=== PATIENT | female | born 1990 | race African-American/Black ===

== ENCOUNTER 2016-11-26 22:05 | Emergency (ER) | payer BC ==
[2016-11-26 22:16] VITALS: BP 119/84; PULSE 91; TEMP 98.9; BMI 24.7
[2016-11-26 22:36] LABS: AUTOMATED BASOPHIL 0.6 % (0-2); AUTOMATED EOSINOPHIL 2.8 % (0-5); AUTOMATED LYMPH 17.4 % (17-44); AUTOMATED MONOCYTE 5.2 % (3-10)
[2016-11-26 22:48] LABS: BLOOD UREA NITROGEN 12 MG/DL (7-17); CALCIUM 9.5 MG/DL (8.4-10.2); CALCULATED OSMOLALITY 267 MOs/Kg (270-290); CHLORIDE 104 mEq/L (98-107); GLUCOSE 87 mg/dL (70-99); SODIUM LEVEL 139 mEq/L (137-146); TOTAL PROTEIN 7.2 G/DL (6.3-8.2)
[2016-11-26] MEDS ORDERED: ONDANSETRON HCL 4 MG ODT TAB PO ONE (23:41)
[2016-11-26] MEDS ORDERED: IBUPROFEN 800 MG TAB PO ONE (23:41)
--- NOTE | 2016-11-26 23:44 | EDPRACDOC ---
- General Information Chief Complaint: Nausea,Vomiting,Diarrhea Stated Complaint: N/V/D Information Source: Patient Mode of Arrival: Car Home Medications: Home Medications Ciprofloxacin HCl [Cipro] 500 mg PO BID #14 tab 05/28/16 Dicyclomine HCl [Bentyl] 20 mg PO Q8H PRN #20 tab 05/28/16 Ondansetron HCl [Zofran] 4 mg PO Q8H PRN #15 tab 05/28/16 Ondansetron [Zofran Odt] 4 mg PO TID PRN #10 tab.rapdis 11/27/16 Allergies/Adverse Reactions: Allergies Allergy/AdvReac Type Severity Reaction Status Date / Time No Known Allergies Allergy Verified 05/28/16 21:19 - History of Present Illness Onset: 2 days HPI: C/o sore throat, non productive cough, facial pressure, nasal congestion, nausea , vomiting, diarrhea, feeling hot, and gen weakness x 2 days. Denies cp, SOB, changes in urine. Med hx = none. Improves With: Reports: Nothing Symptoms: Reports: Cough, Fever, Nasal Symptoms, Sore Throat, Nausea, Vomiting, Weakness, Other (facial pressure and pain) ED Past Medical History - History Reviewed Yes Nurses notes reviewed and agree except as marked - Patient Medical History Neurological History: Reports: Migraine GI/ History: Denies: Urinary Tract Infection Psychological History: Denies: Depression Systemic History: Denies: Cancer Surgical History: Denies: Hysterectomy - Social Medical History Smoking Status: Heavy tobacco smoker (5 or more cigarettes/day or daily pipe/ cigar) EDM Review of Systems - Review of Systems ROS Negative Except as Marked: Yes All systems reviewed and were negative except as marked Throat: Pain Nose: Congestion Respiratory: Cough Neurological: Weakness - Physical Exam Constitutional: Alert Oriented to: Time, Person, Place Last recorded Vital Signs: Last Vital Signs Temp 98.9 F 11/26/16 22:12 Pulse 91 11/26/16 22:12 Resp 20 11/26/16 22:12 BP 119/84 11/26/16 22:12 Pulse Ox 98 11/26/16 22:12 Oxygen Pulse Oxygen Saturation 98 O2 Device Room Air Oxygen Flow Rate Fraction of Inspired Oxygen ( FIO2) - HEENT Head: Normal Eye Exam: negative: Conjunctival Injection, Scleral Icterus Oropharynx: Red Tympanic Membrane: Normal TMJ: Normal Nose: Congestion Neck: Normal - Respiratory/Cardiovascular Respiratory: Normal - CTA Cardiovascular: Normal - GI Tenderness: Non tender - Musculoskeletal Back: Normal Extremities: Normal - Integumentary Skin: Normal - Neurologic Mood Description: Normal Thought: Coherent Perception: Normal - Results 11/26/16 22:23 11/26/16 22:23 WBC 15.1 xk/uL (3.8-10.8) H 11/26/16 22:23 RBC 4.71 xM/uL (4.20-5.40) 11/26/16 22:23 Hgb 13.9 g/dL (12.0-16.0) 11/26/16 22:23 Hct 43.1 % (36-47) 11/26/16 22:23 MCV 92 fL (81-99) 11/26/16 22:23 MCH 29.6 pg (27-32) 11/26/16 22:23 MCHC 32.4 g/dl (33-36) L 11/26/16 22:23 RDW 12.8 % (11.5-14.5) 11/26/16 22:23 Plt Count 224 xk/uL (130-400) 11/26/16 22:23 MPV 8.0 fL (7.4-10.4) 11/26/16 22:23 Neut % (Auto) 74.0 % (45-76) 11/26/16 22:23 Lymph % (Auto) 17.4 % (17-44) 11/26/16 22:23 Bea[place]gard % (Auto) 5.2 % (3-10) 11/26/16 22:23 Eos % (Auto) 2.8 % (0-5) 11/26/16 22:23 Baso % (Auto) 0.6 % (0-2) 11/26/16 22:23 Absolute Neuts (auto) 11.17 xk/uL (1.7-8.2) H 11/26/16 22:23 Absolute Lymphs (auto) 2.57 xk/uL (0.65-4.75) 11/26/16 22:23 Sodium 139 mEq/L (137-146) 11/26/16 22:23 Potassium 4.0 mEq/L (3.5-5.1) 11/26/16 22:23 Chloride 104 mEq/L (98-107) 11/26/16 22:23 Carbon Dioxide 23 mMOL/L (22-33) 11/26/16 22:23 Anion Gap 16 mEq/L (8-16) 11/26/16 22:23 BUN 12 MG/DL (7-17) 11/26/16 22:23 Creatinine 0.80 MG/DL (0.52-1.04) 11/26/16 22:23 Estimated GFR (MDRD) > 60 mL/min (>=60) 11/26/16 22:23 Glucose 87 mg/dL (70-99) 11/26/16 22:23 Calculated Osmolality 267 MOs/Kg (270-290) L 11/26/16 22:23 Calcium 9.5 MG/DL (8.4-10.2) 11/26/16 22:23 Total Bilirubin 1.0 MG/DL (0.2-1.3) 11/26/16 22:23 AST 21 IU/L (14-36) 11/26/16 22:23 ALT 26 IU/L (9-52) 11/26/16 22:23 Alkaline Phosphatase 65 IU/L (38-126) 11/26/16 22:23 Total Protein 7.2 G/DL (6.3-8.2) 11/26/16 22:23 Albumin 4.3 G/DL (3.5-5.0) 11/26/16 22:23 Amylase 74 IU/L (30-110) 11/26/16 22:23 Lipase 49 U/L (23-300) 11/26/16 22:23 Lab Results 11/26/16 11/26/16 22:23 22:23 WBC 15.1 H RBC 4.71 Hgb 13.9 Hct 43.1 MCV 92 MCH 29.6 MCHC 32.4 L RDW 12.8 Plt Count 224 MPV 8.0 Neut % (Auto) 74.0 Lymph % (Auto) 17.4 Bea[place]gard % (Auto) 5.2 Eos % (Auto) 2.8 Baso % (Auto) 0.6 Absolute Neuts (auto) 11.17 H Absolute Lymphs (auto) 2.57 Sodium 139 Potassium 4.0 Chloride 104 Carbon Dioxide 23 Anion Gap 16 BUN 12 Creatinine 0.80 Estimated GFR (MDRD) > 60 Glucose 87 Calculated Osmolality 267 L Calcium 9.5 Total Bilirubin 1.0 AST 21 ALT 26 Alkaline Phosphatase 65 Total Protein 7.2 Albumin 4.3 Amylase 74 Lipase 49 Decision Time to Discharge: 00:26 - Departure Disposition: Home Condition: Stable Final Diagnosis: Nausea vomiting and diarrhea Instructions: Acute Nausea and Vomiting (ED), Acute Diarrhea (ED) Education/Counseling Given To: Patient Education/Counseling Given Regarding: Diagnosis, Treatment, Prognosis, Follow Up Referrals: None,No Provider [Primary Care Provider] - One Week Prescriptions: New Ondansetron [Zofran Odt] 4 mg PO TID PRN #10 tab.rapdis PRN Reason: Nausea/Vomiting No Action Ciprofloxacin HCl [Cipro] 500 mg PO BID #14 tab Dicyclomine HCl [Bentyl] 20 mg PO Q8H PRN #20 tab PRN Reason: Pain Ondansetron HCl [Zofran] 4 mg PO Q8H PRN #15 tab PRN Reason: Nausea/Vomiting Forms: Excuse Note Additional Instructions: Follow up with primary care. Return to ED for any new or worsening symptoms.
== END 2016-11-27 00:44 | disposition home or self-care (01) ==
LOC: ED 22:05
DX: R11.2 Nausea with vomiting, unspecified (principal); R19.7 Diarrhea, unspecified
CPT/HCPCS: 36415; 80053; 82150; 83690; 85025; 87880; 99283; J3490